=== PATIENT | male | born 1945 | race Hispanic/Latino ===

== ENCOUNTER 2024-09-09 15:31 | Emergency (ER) | payer OTHER, MEDICARE ==
[~2024-09-09] VITALS: Ht 167.6 cm; Wt 81.6 kg
--- NOTE | 2024-09-09 16:54 | ERN ---
General Chief Complaint: Aspiration Stated Complaint: SOB EPISODES Source: patient History of Present Illness Initial Comments IN HIS IS A 79-YEAR-OLD MALE COMING IN TO BE EVALUATED FOR CHOKING SPELLS. PER PATIENT HE HAS BEEN CHOKING FOR ABOUT THREE MONTHS. PATIENT HAD A CVA AND HAS BEEN ASYMPTOMATIC SINCE THREE MONTHS AGO. PER FAMILY MEMBER HE WAS ABLE TO TOLERATE ORAL INTAKE IN THE FORMS OF SOLID AND LIQUID. CHOKING SPELLS HAPPENED WHILE HE WAS SLEEPING IN HIS CHAIR LEANING FORWARD. Allergies: Coded Allergies: No Known Allergies (Unverified Allergy, Unknown, 09/09/24) Past Medical History Past Medical History: Heart Disease, Hypertension, Stroke Medical History Other: RT SIDE WEAKNESS Past Surgical History: Other ROS Dictation CONSTITUTIONAL: NO CHILLS, NO FEVER, NO WEAKNESS, NO DIAPHORESIS, NO MALAISE. HEAD/FACE: NO SIGNS OF TRAUMA. EENT: NO EYE PAIN, NO BLURRED VISION, NO TEARING, NO DOUBLE VISION, NO EAR PAIN, NO EAR DISCHARGE, NO NOSE PAIN, NO NASAL CONGESTION, NO THROAT PAIN, NO THROAT SWELLING, NO MOUTH PAIN. RESPIRATORY: NO COUGH, NO ORTHOPNEA, NO SOB, NO STRIDOR, NO WHEEZING. CARDIOVASCULAR: NO CHEST PAIN, NO EDEMA, NO PALPITATIONS, NO SYNCOPE. GASTROINTESTINAL/ABDOMINAL: NO ABDOMINAL PAIN, NO CONSTIPATION, NO DIARRHEA, NO NAUSEA, NO VOMITING. GENITOURINARY: NO ABNORMAL DISCHARGE, NO DYSURIA, NO FREQUENT URINATION, NO HEMATURIA. NO COMPLAINTS OF PAIN IN THE GENITALS. MUSCULOSKELETAL: NO BACK PAIN, NO GOUT, NO JOINT PAIN, NO JOINT SWELLING, NO MUSCLE PAIN, NO MUSCLE STIFFNESS, NO NECK PAIN. INTEGUMENTARY: NO CHANGE IN COLOR, NO CHANGE IN HAIR/NAILS, NO DRYNESS, NO LESION, NO LUMPS, NO RASH. NEUROLOGICAL/PSYCH: NO ANXIETY, NOT DEPRESSED, NO EMOTIONAL PROBLEM, NO HEADACHE, NO NUMBNESS, NO PRE-EXISTING DEFICIT, NO HISTORY OF SEIZURES, NO TREMORS, NO WEAKNESS. HEMATOLOGIC/LYMPHATIC: NOT ANEMIC, NO HISTORY OF BLOOD CLOTS, NO APPARENT BLEEDING, NO BRUISING, GLANDS NOT SWOLLEN. ALL SYSTEMS NEGATIVE, EXCEPT NOTED. Physical Exam Physical Exam Dictation VITAL SIGNS: REVIEWED. GENERAL APPEARANCE: ALERT, ORIENTED X3, NO ACUTE DISTRESS, OBESE. HEAD AND FACE: NON-TRAUMATIC. EYES: PERRL, PINK CONJUNCTIVAS, EYELID NO TRAUMA, ANTERIOR CHAMBER CLEAR. EARS: PINNAS INTACT AND NO SIGNS OF TRAUMA OR ERYTHEMA. EAR CANALS CLEAR AND NO DISCHARGE. TMS NO ERYTHEMA. NOSE: NO DISCHARGE, NO BLEEDING. OROPHARYNX: MOUTH NORMAL, TEETH NO CARIES, TONGUE PINK. PHARYNX CLEAR, NO ERYTHEMA. TONSILS NO EXUDATES, NO ABSCESSES NOTED. MUCOUS MEMBRANE MOIST. NECK: SUPPLE, NON-TENDER, NO THYROMEGALY, NO MASSES, NO JVD, NO BRUITS. BREAST: DEFERRED. CHEST: NO TENDERNESS, NO CREPITUS, NO PARADOXICAL MOVEMENT, NO RETRACTIONS. LUNGS: CLEAR, WELL-VENTILATED, SYMMETRIC, NO RALES, NO WHEEZING, NO RHONCHI, NO STRIDOR, GOOD BREATH SOUNDS BILATERALLY. HEART: REGULAR RATE, REGULAR RHYTHM, NO MURMUR, NO GALLOPS. VASCULAR: NO PERIPHERAL EDEMA. ABDOMEN: SOFT, POSITIVE BOWEL SOUNDS, NONDISTENDED, NO GUARDING, NONTENDER, NO REBOUND, NO MASSES NO HEPATOMEGALY, NO SPLENOMEGALY, NO PRECIADO'S SIGN, NO HE RNIAS. RECTAL: DEFERRED. GENITAL: DEFERRED. NEUROLOGICAL: NORMAL SPEECH, GROSS MOTOR FUNCTION INTACT, GROSS SENSORY FUNCTIO N INTACT. MUSCULOSKELETAL: NECK NONTENDER, FULL RANGE OF MOTION, BACK NONTENDER, FULL RANGE OF MOTION. EXTREMITIES: NONTENDER, FULL RANGE OF MOTION. SKIN: COLOR PINK, DRY, NO TURGOR, NO RASH, NO LACERATIONS, NO ABRASIONS, NO CONTUSIONS. LYMPHATICS: DEFERRED. Results Laboratory and Microbiology Labs Reviewed?: Yes MDM MDM: DIFFERENTIAL DIAGNOSIS: HISTORY OF CVA, CHOKING SPELLS PATIENT IS A 79-YEAR-OLD GENTLEMAN COMING IN TO BE EVALUATED FOR CHOKING SPELLS. PATIENT STATES THAT HE NOTICES THAT WHEN HE SLEEPS IN HIS WHEELCHAIR LEANING FORWARD HE TENDS TO CHOKE. PATIENT IS ABLE TO TOLERATE ORAL INTAKE IN THE FORM OF SOLIDS AND LIQUID. I ADVISED HIM CORRECTION OF SLEEPING HABIT IN ORDER TO HELP WITH THE CHOKING. PATIENT WILL BE DISCHARGED IN STABLE CONDITION ED Course Vital Signs Date Time Temp Pulse Resp B/P (MAP) Pulse Ox O2 Delivery O2 Flow Rate FiO2 09/09/24 15:39 98.1 50 16 114/51 97 Room Air 0 DX & DISP Disposition: Discharge Departure Impression: Primary Impression: Choking episode Condition: Stable Additional Instructions: FOLLOW-UP WITH PRIMARY CARE PROVIDER IN 1 TO 2 DAYS. TAKE MEDICATIONS DIRECTED HERE IN THE EMERGENCY ROOM. OKAY TO CONTINUE HOME MEDICATIONS UNLESS OTHERWISE DISCUSSED DURING YOUR VISIT IN THE EMERGENCY ROOM TODAY. RETURN TO YOUR NEAREST EMERGENCY ROOM IF SYMPTOMS WORSEN OR IF THERE IS NO IMPROVEMENT. CALL 911 IF YOU NEED IMMEDIATE ASSISTANCE. TAKE TYLENOL [id number] NEEDED AND IF NO CONTRAINDICATIONS ARE PRESENT. INCREASE ORAL HYDRATION. A WOUND CULTURE OR URINE CULTURE WAS ORDERED HERE IN THE EMERGENCY ROOM DEPARTMENT PLEASE FOLLOW-UP WITH PRIMARY CARE PROVIDER AND ADVISE THEM TO GET REPEAT PORTS FROM OUR FACILITY. IF YOU HAD ANY RIKY WRAP/SPLINTS THAT WERE APPLIED HERE, PLEASE DO NOT REMOVE THEM UNTIL YOU SEE YOUR PRIMARY CARE OR SPECIALTY. REFERRALS: Referrals: SARAH CARDOZA (PCP) Time of Disposition: 16:54 ALEXANDRE GRAHAM MD Sep 09, 2024 16:54
[2024-09-09 17:16] VITALS: BP 112/56; PULSE 54; RESP 16; TEMP 98.2; O2SAT 99
== END 2024-09-09 17:21 | disposition home or self-care (01) ==
LOC: EDH 15:31
DX: R09.89 Other specified symptoms and signs involving the circulatory and respiratory systems (principal); I10 Essential (primary) hypertension; Z86.73 Personal history of transient ischemic attack (TIA), and cerebral infarction without residual deficits
CPT/HCPCS: 99284

== ENCOUNTER 2024-11-26 16:42 | Emergency (ER) | payer OTHER, MEDICARE ==
[~2024-11-26] VITALS: Ht 167.6 cm; Wt 74.8 kg
--- NOTE | 2024-11-26 17:13 | EKG ---
[facility] Test Date: 2024-11-26 Test Time: 17:09:13 Pat Name: VINITA GRESHAM Department: ED Room: Gender: M Cattle [place]: [id number] : 1945 Requested By: ALEXANDRE GRAHAM Order Number: [id number] Reading MD: Alec Pandya Measurements Intervals Marshall Rate: 67 P: 33 NJ: 203 QRS: -42 QRSD: 114 T: 92 QT: 426 QTc: 449 Interpretive Statements Sinus rhythm No previous ECG available for comparison Electronically Signed On 11-27-2024 07:17:31 CDT by Alec Pandya Please click the below link to view image of tracing.
[2024-11-26 17:20] LABS: BASOPHILS # (AUTO) 0.04 K/uL (0.00-0.20); BASOPHILS % (AUTO) 0.5 % (0.0-5.0); EOSINOPHILS # (AUTO) 0.03 K/uL (0.00-0.70); EOSINOPHILS % (AUTO) 0.4 % (0.0-8.0); HEMATOCRIT 32.1 % (42-54); IMMATURE GRANULOCYTE ABSOLUTE 0.02 K/uL (0-1); LYMPHOCYTES % (AUTO) 13.3 % (21.0-51.0); MEAN CORPUSCULAR HEMOGLOBIN 31.3 pg (27.0-33.0); MEAN CORPUSCULAR HGB CONC 32.7 g/dL (32.0-36.0); MEAN CORPUSCULAR VOLUME 95.5 fL (79-99); MONOCYTES % (AUTO) 12.7 % (3.0-13.0); NEUTROPHILS # (AUTO) 5.6 K/uL (1.8-7.7); NEUTROPHILS % (AUTO) 72.8 % (40.0-77.0); PLATELET COUNT (AUTO) 352 K/uL (130-400); RED BLOOD CELL COUNT(AUTO) 3.36 MIL/uL (4.50-6.20); RED CELL DISTRIBUTION WIDTH 15.8 % (11.0-15.5); WHITE BLOOD COUNT (AUTO) 7.7 K/uL (4.8-10.8)
[2024-11-26 17:34] LABS: CREATININE 2.3 mg/dL (0.5-1.3); POTASSIUM 4.6 mmol/L (3.5-5.1)
[2024-11-26 17:45] LABS: B-TYPE NATRIURETIC PEPTIDE 93 pg/mL (0-100)
--- NOTE | 2024-11-26 18:08 | ERN ---
General Chief Complaint: Other Problems Stated Complaint: CONGESTION Time Seen by MD: 16:47 Source: patient, family History of Present Illness Initial Comments PATIENT IS A 79-YEAR-OLD MALE COMING IN TO BE EVALUATED FOR DYSPHAGIA. PER PATIENT HE HAS BEEN DIAGNOSED WITH DYSPHAGIA IN THE PAST BUT RECENTLY STARTED HAVING A COUGH CONGESTION AND STARTED COUGHING UP SPUTUM. FAMILY MEMBERS STATE THAT HE HAS NOT BEEN ABLE TO EVEN EAT A LIP WITH WHICH HE USED TO BEFORE. Allergies: Coded Allergies: No Known Allergies (Unverified Allergy, Unknown, 09/09/24) Home Meds Reported Medications Cetirizine HCl (Cetirizine HCl) 1 Mg/Ml Solution, 5 ML PO DAILY for allergy symptoms for 30 Days, #150 ML 0 Refills 11/26/24 Famotidine (Famotidine) 20 Mg Tablet, 1 TAB PO BID for 30 Days, #60 TAB 0 Refills 11/26/24 Metoprolol Tartrate (Metoprolol Tartrate) 50 Mg Tablet, 50 MG PO DAILY, TAB 11/26/24 Mirtazapine (Mirtazapine) 15 Mg Tablet, 1 TAB PO HS for 30 Days, #30 TAB 0 Refills 11/26/24 Past Medical History Past Medical History: Heart Disease, Hypertension, Stroke Medical History Other: RT SIDE WEAKNESS Past Surgical History: Other ROS Dictation LIMITED REVIEW OF SYSTEMS IS A DEMENTIA Physical Exam Physical Exam Dictation VITAL SIGNS: REVIEWED. GENERAL APPEARANCE: ALERT, ORIENTED, NO ACUTE DISTRESS, OBESE. HEAD AND FACE: NON-TRAUMATIC. EYES: PERRL, PINK CONJUNCTIVAS, EYELID NO TRAUMA, ANTERIOR CHAMBER CLEAR. EARS: PINNAS INTACT AND NO SIGNS OF TRAUMA OR ERYTHEMA. EAR CANALS CLEAR AND NO DISCHARGE. TMS NO ERYTHEMA. NOSE: NO DISCHARGE, NO BLEEDING. OROPHARYNX: MOUTH NORMAL, TEETH NO CARIES, TONGUE PINK. PHARYNX CLEAR, NO ERYTHEMA. TONSILS NO EXUDATES, NO ABSCESSES NOTED. MUCOUS MEMBRANE MOIST. NECK: SUPPLE, NON-TENDER, NO THYROMEGALY, NO MASSES, NO JVD, NO BRUITS. BREAST: DEFERRED. CHEST: NO TENDERNESS, NO CREPITUS, NO PARADOXICAL MOVEMENT, NO RETRACTIONS. LUNGS: CLEAR, WELL-VENTILATED, SYMMETRIC, NO RALES, NO WHEEZING, NO RHONCHI, NO STRIDOR, GOOD BREATH SOUNDS BILATERALLY. HEART: REGULAR RATE, REGULAR RHYTHM, NO MURMUR, NO GALLOPS. VASCULAR: NO PERIPHERAL EDEMA. ABDOMEN: SOFT, POSITIVE BOWEL SOUNDS, NONDISTENDED, NO GUARDING, NONTENDER, NO REBOUND, NO MASSES NO HEPATOMEGALY, NO SPLENOMEGALY, NO PRECIADO'S SIGN, NO HERNIAS. RECTAL: DEFERRED. GENITAL: DEFERRED. NEUROLOGICAL: NORMAL SPEECH, GROSS MOTOR FUNCTION INTACT, GROSS SENSORY FUNCTION INTACT. MUSCULOSKELETAL: NECK NONTENDER, FULL RANGE OF MOTION, BACK NONTENDER, FULL RANGE OF MOTION. EXTREMITIES: NONTENDER, FULL RANGE OF MOTION. SKIN: COLOR PINK, DRY, NO TURGOR, NO RASH, NO LACERATIONS, NO ABRASIONS, NO CONTUSIONS. LYMPHATICS: DEFERRED. Results Laboratory and Microbiology Lab and Micro Result Laboratory Tests Test 11/26/24 17:11 White Blood Count 7.7 K/uL (4.8-10.8) Red Blood Count 3.36 MIL/uL (4.50-6.20) L Hemoglobin 10.5 g/dL (14.0-18.0) L Hematocrit 32.1 % (42-54) L Mean Corpuscular Volume 95.5 fL (79-99) Mean Corpuscular Hemoglobin 31.3 pg (27.0-33.0) Mean Corpuscular Hemoglobin Concent 32.7 g/dL (32.0-36.0) Red Cell Distribution Width 15.8 % (11.0-15.5) H Platelet Count 352 K/uL (130-400) Mean Platelet Volume 10.0 fL (7.5-10.5) Immature Granulocyte % (Auto) 0.3 % (0-1) Neutrophils (%) (Auto) 72.8 % (40.0-77.0) Lymphocytes (%) (Auto) 13.3 % (21.0-51.0) L Monocytes (%) (Auto) 12.7 % (3.0-13.0) Eosinophils (%) (Auto) 0.4 % (0.0-8.0) Basophils (%) (Auto) 0.5 % (0.0-5.0) Neutrophils # (Auto) 5.6 K/uL (1.8-7.7) Lymphocytes # (Auto) 1.0 K/uL (1.0-4.8) Monocytes # (Auto) 1.0 K/uL (0.1-1.0) Eosinophils # (Auto) 0.03 K/uL (0.00-0.70) Basophils # (Auto) 0.04 K/uL (0.00-0.20) Absolute Immature Granulocyte (auto 0.02 K/uL (0-1) Nucleated Red Blood Cells 0.0 % (0.0-0.19) Sodium Level 139 mmol/L (136-145) Potassium Level 4.6 mmol/L (3.5-5.1) Chloride Level 104 mmol/L (101-111) Carbon Dioxide Level 26 mmol/L (21-32) Blood Urea Nitrogen 29 mg/dL (7-18) H Creatinine 2.3 mg/dL (0.5-1.3) H Glomerular Filtration Rate Calc 28 mL/min (>90) Random Glucose 125 mg/dL (70-105) H Total Calcium 8.7 mg/dL (8.5-10.1) Troponin I High Sensitivity 9 ng/L (4-75) B-Type Natriuretic Peptide 93 pg/mL (0-100) MDM MDM: DIFFERENTIAL DIAGNOSIS: WORSENING DYSPHAGIA, HISTORY OF DEMENTIA [place]IN[place]. RATIONALE: TESTS CONSIDERED AND ORDERED SECONDARY TO SHARED DECISION MAKING INCLUDE: PREVIOUS OUTSIDE RECORDS REVIEWED: OLD ER VISITS. RISK OF COMPLICATION AND/OR MORBIDITY OR MORTALITY OF PATIENT MANAGEMENT: NONE MEDICATIONS-PER MEDICATION RECONCILIATION NEED FOR HOSPITALIZATION: PATIENT DOES NOT MEET CRITERIA FOR HOSPITALIZATION. NEED FOR EMERGENCY MAJOR/MINOR SURGERY: NO THERE ARE NO SOCIAL CONCERNS WITH THIS PATIENT. PRESCRIPTION DRUG MANAGEMENT PRESCRIPTIONS WILL INCLUDE SYMPTOMATIC CARE PATIENT'S PRIOR EXTERNAL MEDICAL RECORDS FROM OTHER ER VISITS WERE REVIEWED BY ME INDICATED. PRIOR TESTING AND RESULTS FROM PREVIOUS VISITS WERE REVIEWED. PRIOR TESTS WERE TAKEN INTO ACCOUNT WITH MEDICAL DECISION MAKING AND RESOURCE UTILIZATION, INDEPENDENT HISTORIAN/HISTORIANS WERE USED TO OBTAIN COMPLETE MEDICAL HISTORY. I INDEPENDENTLY INTERPRETED THE TEST THAT WERE PERFORMED, RESULTS WERE REVIEWED BY ME AND CONSIDERED FINDINGS ON RADIOLOGY IF ORDERED. MEDICAL MANAGEMENT AND EXAMINATION INTERPRETATION DISCUSSIONS WERE HAD BY ME WITH OTHER QUALIFIED HEALTHCARE PROFESSIONALS INDICATED FOR THE PATIENT'S CARE. PATIENT IS A 79-YEAR-OLD GENTLEMAN COMING IN WITH WORSENING DYSPHAGIA. PER FAMILY MEMBER PATIENT HAD INITIALLY PRESENTED WITH A DYSPHAGIA TO SOLIDS AND WAS TOLERATING LIQUIDS TODAY PATIENT STARTED HAVING A COUGH WITH PRODUCTION AND PER PATIENT PRESENTATION INITIATED AFTER DRINKING HIS ENSURE. PER FAMILY MEMBER PATIENT HAS NOT BEEN ABLE TO TOLERATE LIQUID TODAY. CT scan of the patient's neck shows a large mass compressing both the esophagus and the trachea and displacing them laterally. The location of the mass is suggestive of a thymoma although a squamous cell carcinoma could also be possible. In either case I think the patient needs to be admitted to the hospital. Unfortunately we do not have ENT or Cardiothoracic Services here and so we will be transferring the patient to another hospital. As the patient is NPO I will start IV fluids on him. ED Course Orders Procedure Category Date Status Time Cbc With Differential LAB 11/26/24 Complete 16:54 Basic Metabolic Panel LAB 11/26/24 Complete 16:54 Troponin I High LAB 11/26/24 Complete Sensitivity 16:54 B-Type Natriuretic LAB 11/26/24 Complete Peptide 16:54 12 Lead Ekg Tracing- EKG 11/26/24 Complete Technical 16:54 Ct Neck Soft Tiss W/O CT 11/26/24 Resulted Contrast 17:47 Chest 1vw RAD 11/26/24 Resulted 19:34 Vital Signs Date Time Temp Pulse Resp B/P (MAP) Pulse Ox O2 Delivery O2 Flow Rate FiO2 11/26/24 21:13 98.2 72 16 135/50 98 Room Air* 0 21 11/26/24 17:08 98.2 70 16 133/61 98 Room Air* 0 21 11/26/24 16:53 97.5 67 16 112/61 99 Room Air DX & DISP Disposition: Transfer Departure Impression: Primary Impression: Dysphagia Additional Impressions: History of dementia, Mass in neck Condition: Stable Referrals: SARAH CARDOZA (PCP) ALEXANDRE GRAHAM MD November 26, 2024 18:08 REMINGTON OSULLIVAN MD November 26, 2024 21:26
[2024-11-26] MEDS ORDERED: MIRT-22 PO (18:37)
[2024-11-26] MEDS ORDERED: METO50TA18 PO (18:41)
[2024-11-26] MEDS ORDERED: FAMO20TA8 PO (18:41)
[2024-11-26] MEDS ORDERED: CETI-261 PO (18:42)
--- NOTE | 2024-11-26 19:52 | HMCIMG ---
CT OF THE NECK WITH AND WITHOUT CONTRAST INDICATION: DYSPHAGIA TECHNIQUE: Without contrast, thin section images were obtained through the soft tissues of the neck. Coronal and sagittal reformats were performed. CT was performed with one or more of the following dose reduction techniques: automated exposure control, adjustment of the mA and/or kV according to patient size, or use of iterative reconstruction technique FINDINGS: There is a large left thyroid mass causing significant narrowing of the esophagus and deviation if not invasion of the trachea and esophagus. The lung apices are unremarkable. The bony structures demonstrate degenerative changes of the cervical spine. IMPRESSION: Large 6 cm diameter left thyroid mass compressing it not invading the esophagus and deviating and narrowing if not invading the trachea. These findings are most worrisome for neoplasm.
--- NOTE | 2024-11-26 20:48 | HMCIMG ---
CHEST 1VW CLINICAL HISTORY: Cough COMPARISON: None TECHNIQUE: Single view of the chest was obtained. FINDINGS: Lungs are clear. The cardiac size and mediastinum are unremarkable. The bony structures are within normal limits. IMPRESSION: No acute cardiopulmonary process identified.
[2024-11-26] MEDS: LACTATED RINGERS 1000ML IV STA (22:04)
[2024-11-26] MEDS: D5W-1/2 NS/20MEQ KCL 1,000 ML IV SCH (23:25)
--- NOTE | 2024-11-27 01:46 | NUR ---
TRANSFER CALL PLACED TO [facility] TO INITIATE TRANSFER FOR ENT SERVICES
[2024-11-27] MEDS: acetaMINOPHEN 100 ML IVPB ONE (02:16)
[2024-11-27 03:50] VITALS: BP 96/45; PULSE 72; RESP 18; TEMP 99.3; O2SAT 96
--- NOTE | 2024-11-27 04:27 | NUR ---
REPORT GIVEN TO NABOR SCHAFER AT [facility]
== END 2024-11-27 04:19 | disposition short-term general hospital (02) ==
LOC: EDH 16:42
DX: R13.10 Dysphagia, unspecified (principal); R22.1 Localized swelling, mass and lump, neck; F03.90 Unspecified dementia, unspecified severity, without behavioral disturbance, psychotic disturbance, mood disturbance, and anxiety; I10 Essential (primary) hypertension; Z79.899 Other long term (current) drug therapy; Z86.73 Personal history of transient ischemic attack (TIA), and cerebral infarction without residual deficits
CPT/HCPCS: 99285; 96374; 70490; 71045; 96361; 96375; 84484; 80048; 83880; 85025; 36415; 93005; J7120; J3480